=== PATIENT | female | born 1995 | race Two or more races ===

== ENCOUNTER 2022-05-16 00:43 | Emergency (ER) | payer OTHER ==
[~2022-05-16] VITALS: Ht 170.2 cm; Wt 60.8 kg
[2022-05-16 01:23] VITALS: BP 126/66
[2022-05-16] MEDS ORDERED: IBUPROFEN 600 MG TABLET PO ONE (01:30)
[2022-05-16] MEDS ORDERED: IBUPROFEN 600 MG TABLET ONE (01:30)
--- NOTE | 2022-05-16 01:32 | NUR ---
PATIENT BIBFRIEND C/O RIGHT ANKLE PAIN S/O TRIP AND FALL. PATIENT IS A/O X 4, RR EVEN AND UNLABORED NO SOB NOTED, VSS, NO ACUTE DISTRESS NOTED.
[2022-05-16] MEDS ORDERED: HYDR-3972 PO (03:14)
[2022-05-16] MEDS ORDERED: IBUP-1953 PO (03:14)
--- NOTE | 2022-05-16 03:37 | NUR ---
Patient discharged to home in stable condition. Written and verbal after care instructions given. Patient verbalizes understanding of instruction.
== END 2022-05-16 03:37 | disposition home or self-care (01) ==
LOC: ER 00:52
DX: S82.54XA Nondisplaced fracture of medial malleolus of right tibia, initial encounter for closed fracture (principal); W01.0XXA Fall on same level from slipping, tripping and stumbling without subsequent striking against object, initial encounter; Y93.89 Activity, other specified; Y92.89 Other specified places as the place of occurrence of the external cause; Y99.8 Other external cause status
CPT/HCPCS: 73610-TC